=== PATIENT | female | born 1930 | race Two or more races ===

== ENCOUNTER → 2018-06-30 | Outpatient (CLI) | payer MEDICARE ==
--- NOTE | 2018-07-02 12:26 | MM ---
Reason for exam: clinical finding. Last mammogram was performed 3 years and 7 months ago. History: Patient is postmenopausal. Family history of breast cancer in paternal aunt. Indicated problem(s): bloody discharge in the right breast. Physical Findings: Nurse did not find any significant physical abnormalities on exam. MG 3D Diag Mammo W/Cad ALEXSANDRA Bilateral CC and MLO view(s) were taken. Prior study comparison: November 23, 2014, mammogram, performed at [facility]. July 14, 2013, mammogram, performed at [facility]. There are scattered fibroglandular densities. There is an oval, circumscribed, low density central outer right beast mass 7-8cm from nipple. These results were verbally communicated with the patient and result sheet given to the patient on 07/02/18. ASSESSMENT: Incomplete: need additional imaging evaluation, BI-RAD 0 RECOMMENDATION: Ultrasound of the right breast. (in regards to right bloody nipple discharge and possible central outer right breast cyst)
== END | disposition home or self-care (01) ==
LOC: RADMAMWWP 10:11
PROVIDERS: ATTEND Family Medicine
DX: N64.52 Nipple discharge (principal)
CPT/HCPCS: 77066; G0279; 77062

== ENCOUNTER → 2018-07-06 | Outpatient (CLI) | payer MEDICARE ==
--- NOTE | 2018-07-06 14:13 | USB ---
Reason for exam: additional evaluation requested from abnormal screening. History: Patient is postmenopausal. Family history of breast cancer in paternal aunt. US Breast Workup RT Right complete breast ultrasound includes all four quadrants, the retroareolar region and axilla. Finding demonstrates a 3 x 3 x 3mm lesion too small to characterize at 12 o'clock, a 6 x 3 x 6mm oval, irregular lesion too small to characterize at 7 o'clock with vascular surrounding and a 4 x 3 x 3mm round, hypoechoic lesion too small to characterize at 10 o'clock. These results were verbally communicated with the patient and result sheet given to the patient on 07/06/18. ASSESSMENT: Birads 0, incomplete study. RECOMMENDATION: Surgical consultation of the right breast. (consider ductogram do to spontaneous bloody discharge unilaterally) Called Dr. Celestin with mammographic findings and has scheduled an appointment for the patient for 07/07/18 at 10:[address] De La Rosa. PRELIMINARY REPORT CALLED AND FAXED TO DR. DE LA ROSA ON 07/06/18. [facility]
== END ==
LOC: RADUSWWP 12:44
PROVIDERS: ATTEND Family Medicine
DX: R92.8 Other abnormal and inconclusive findings on diagnostic imaging of breast (principal)

== ENCOUNTER → 2018-07-14 | Day surgery (SDC) | payer MEDICARE ==
[2018-07-14 12:19] VITALS: RESP 16; BMI 30.2
[2018-07-14 14:18] VITALS: BP 128/75; PULSE 65; TEMP 97.9
--- NOTE | 2018-07-14 15:34 | USB ---
EXAMINATION TYPE: US biopsy breast add'l VAD RT, US biopsy breast VAD RT, MG diagnostic mammo RT wo CAD DATE OF EXAM: 07/14/2018 CLINICAL HISTORY: R92.8 abn mammo. TECHNIQUE: Two site ultrasound guided core biopsy of right breast. COMPARISON: 07/06/2018 FINDINGS: The procedure of ultrasound guided core biopsy was explained to the patient. Benefits, alternatives, and risks were discussed. An informed consent was then obtained. Preprocedural timeout was performed. Site A: The patient was placed in supine positioning for imaging and for the procedure. The overlying skin was prepped and draped in usual sterile fashion. 9 cc of lidocaine buffered with bicarbonate was used as anesthetic into the skin and subcutaneous tissue up to the 3 mm mass at the 12:00 position in zone A within the right breast. Under ultrasound guidance, a 12-gauge vacuum assisted biopsy gun device was used to obtain 5 core samples. Following this, a ribbon-shaped biopsy marker was left in lesion. Site B: The patient was placed in supine positioning for imaging and for the procedure. The overlying skin was prepped and draped in usual sterile fashion. 10 cc of lidocaine buffered with bicarbonate was used as anesthetic into the skin and subcutaneous tissue up to the 6 mm nearly anechoic mass at the 7:00 position within the right breast. Under ultrasound guidance, a 12-gauge vacuum assisted biopsy gun device was used to obtain a single core sample. As suspected the mass dispersed after initial biopsy compatible with a cyst. Following this, a wing shaped biopsy marker was left at the site of biopsy. The patient tolerated the procedure well without any immediate complication. The patient was kept in the radiology department for short stay after the procedure and then discharged home in stable condition. Postprocedure mammogram demonstrates appropriate placement of the biopsy markers. IMPRESSION: Successful, uncomplicated two site ultrasound guided core biopsy of the right breast, full pathology results to follow. Pathology Results: Malignant A. RIGHT BREAST AT TWELVE O'CLOCK, NEEDLE CORE BIOPSIES: Usual type ductal hyperplasia, duct cystic changes and apocrine metaplasia. B. RIGHT BREAST AT SEVEN O'CLOCK POSITION, NEEDLE CORE BIOPIES: Unremarkable lobulated adipose tissue admixed with benign breast parenchyma with some fibrocystic changes. Recommendation Surgical consult of the right breast. (bloody discharge needs surgical attention) MELO
== END | disposition home or self-care (01) ==
LOC: RADUSWWP 11:56
PROVIDERS: ATTEND Student in an Organized Health Care Education/Training Program
DX: R92.8 Other abnormal and inconclusive findings on diagnostic imaging of breast (principal); N60.81 Other benign mammary dysplasias of right breast
CPT/HCPCS: 88305; 77065; 19083; 19084; A4648; J2001

== ENCOUNTER → 2019-03-24 | Outpatient (CLI) | payer MEDICARE ==
--- NOTE | 2019-03-24 13:33 | CT ---
EXAMINATION TYPE: CT lumbar spine wo con DATE OF EXAM: 03/24/2019 12:27 PM COMPARISON: None. HISTORY: Low back and Left hip/leg pain for [address] DLP: 779 mGycm Automated exposure control for dose reduction was used. Unenhanced CT of the lumbar spine was performed. Bone and soft tissue window settings are submitted as well as coronal and sagittal reconstructions. There are 5 lumbar-type vertebra. There is spectral convex scoliotic curvature centered at L3 level. There is disc desiccation L4-L5 level with slight grade 1 anterolisthesis L4 on L5. Mild disc space n arrowing at this level is seen. Additional mild disc space narrowing and vacuum disc phenomenon at L5 -S1 level. A large posterior disc herniations are present on sagittal or axial images. Review of axial images shows mild facet degenerative changes L2-L3 level. Axial images at L3-L4 levels show mild to moderate facet degenerative changes bilaterally with mild b road disc bulge mildly effacing intrathecal sac. Bilateral neural foramina are patent. Axial images at L4-L5 level show spondylolisthesis with moderate to advanced facet degenerative carrasco es bilaterally with some effacement of the left posterior lateral thecal sac. Broad-based posterior d isc protrusion effacing the anterior thecal sac. There is dolt-qu-avyswlhd left greater than right bi lateral inferior neural foraminal narrowing. Axial images at the L5-S1 level show moderate facet degenerative changes bilaterally. Spinal canal is preserved. There is mild bilateral anterior inferior neural foraminal narrowing. Heterogeneous anteverted uterus with peripheral calcifications is partially imaged. There are diverti cula throughout the sigmoid colon partially imaged. Visualized liver is diffusely low dense consisten t with fatty infiltration. 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 IMPRESSION: Multilevel degenerative changes as detailed above most prominent L4-L5 level.
== END | disposition home or self-care (01) ==
LOC: RADCTMAIN 12:10
PROVIDERS: ATTEND Physical Medicine & Rehabilitation
DX: M47.26 Other spondylosis with radiculopathy, lumbar region (principal)
CPT/HCPCS: 72131

== ENCOUNTER 2019-08-02 18:46 | Emergency (ER) | payer MEDICARE ==
[2019-08-02] MEDS ORDERED: ONDANSETRON 4 MG/2 ML VIAL IVP STA (20:42)
[2019-08-02] MEDS ORDERED: SODIUM CHLORIDE 0.9% 1,000 ML IV STA (20:42)
[2019-08-02 21:45] VITALS: RESP 16
[2019-08-02 21:56] LABS: Basophils % (A) 0 %; Eosinophils # (A) 0.1 k/uL (0-0.7); Eosinophils % (A) 1 %; HGB 15.1 gm/dL (11.4-16.0); Lymphocytes # (A) 1.1 k/uL (1.0-4.8); Lymphocytes % (A) 7 %; MCH 32.3 pg (25.0-35.0); MCHC 34.4 g/dL (31.0-37.0); Mean Platelet Volume 8.9; Monocytes # (A) 0.6 k/uL (0-1.0); Monocytes % (A) 4 %; Neutrophils # (A) 13.6 k/uL (1.3-7.7); Neutrophils % (A) 88 %; Platelet Count 221 k/uL (150-450); RBC 4.68 m/uL (3.80-5.40); RDW 12.4 % (11.5-15.5); WBC 15.5 k/uL (3.8-10.6)
[2019-08-02 22:04] LABS: Potassium 5.1 mmol/L (3.5-5.1)
[2019-08-02 22:05] LABS: Albumin 4.5 g/dL (3.5-5.0); Calcium 10.2 mg/dL (8.4-10.2); Total Bilirubin 1.1 mg/dL (0.2-1.3); Total Protein 7.4 g/dL (6.3-8.2)
[2019-08-02 22:17] LABS: Appearance,Urine Clear (Clear); Bacteria,Urine Rare /hpf; Bilirubin,Urine Negative (Negative); Blood,Urine Small (Negative); Color,Urine Yellow; Glucose,Urine (UA) Negative (Negative); Hyaline Casts,Urine 37 /lpf (0-2); Ketones,Urine Negative (Negative); Leukocyte Esterase,Urine Large (Negative); Mucus,Urine Occasional /hpf; Nitrite,Urine Negative (Negative); PH, Urine 5.5 (5.0-8.0); Protein,Urine Trace (Negative); RBC,Urine 9 /hpf (0-5); Specific Gravity,Urine 1.024 (1.001-1.035); Squamous Epithelial Cell,Urine 1 /hpf (0-4); Transitional Epi Cells,Urine <1 /hpf (0-1); Urobilinogen,Urine <2.0 mg/dL (<2.0); WBC,Urine 38 /hpf (0-5)
--- NOTE | 2019-08-02 22:26 | XR ---
EXAMINATION TYPE: XR KUB DATE OF EXAM: 08/02/2019 COMPARISON: NONE HISTORY: Pain TECHNIQUE: 2 views upright FINDINGS: There is no sign of intestinal obstruction or pneumoperitoneum. Fecal pattern is normal. Th ere are no pathologic calcifications over the kidneys. There is no sign of a mass. Lung bases are adebayo ar. IMPRESSION: Nonacute abdomen.
[2019-08-02] MEDS ORDERED: ONDANSETRON 4 MG ODT STARTER PACK 2 TAB BTL PO STA (22:57)
--- NOTE | 2019-08-02 22:57 | ED ---
General Adult HPI - General Chief complaint: Nausea/Vomiting/Diarrhea Stated complaint: vomiting/diarrhea Time Seen by Provider: 08/02/19 20:14 Source: patient Mode of arrival: ambulatory Limitations: no limitations - History of Present Illness Initial comments: 88-year-old female patient presents to the emergency department today for evaluation of vomiting and diarrhea. Patient states symptoms started around 3 PM this afternoon. States that she has had numerous episodes of both vomiting and diarrhea. States that she's been unable to keep down any food or fluids. States she did try sips of Pedialyte which she then vomited up as well. She states that she is having some mild generalized soreness to her abdomen, she believes it is her muscles. She denies fever but states she has been chilled. She denies any back pain. Denies chest pain or shortness of breath. Denies any recent travel or sick contacts. She did just complete a course of azithromycin and prednisone for ear infection. Patient denies any recent rash, shortness breath, chest pain, back pain, numbness, tingling, dizziness, weakness, hematuria, dysuria, urinary urgency, urinary frequency, headache, visual changes, or any other complaints. - Related Data Home Medications Medication Instructions Recorded Confirmed Atenolol 25 mg PO DAILY 07/13/18 07/14/18 Levothyroxine Sodium [Synthroid] 50 mcg PO DAILY 07/13/18 07/14/18 Losartan-Hctz 50-12.5 mg [Hyzaar 1 each PO DAILY 07/13/18 07/14/18 50-12.5] Lovastatin [Mevacor] 40 mg PO HS 07/13/18 07/14/18 Multivit-Min/Iron/Folic/Lutein 1 each PO DAILY 07/13/18 07/14/18 [Centrum Silver Women Tablet] Previous Rx's Medication Instructions Recorded Nitrofurantoin Monohyd/M-Cryst 100 mg PO Q12HR #14 cap 08/02/19 [Macrobid] Allergies Allergy/AdvReac Type Severity Reaction Status Date / Time No Known Allergies Allergy Verified 08/02/19 19:12 Review of Systems ROS Statement: Those systems with pertinent positive or pertinent negative responses have been documented in the HPI. ROS Other: All systems not noted in ROS Statement are negative. Past Medical History Past Medical History: Hyperlipidemia, Hypertension, Thyroid Disorder History of Any Multi-Drug Resistant Organisms: None Reported Past Surgical History: Orthopedic Surgery Additional Past Surgical History / Comment(s): R heel surgery november 2017 Past Anesthesia/Blood Transfusion Reactions: No Reported Reaction Past Psychological History: No Psychological Hx Reported Smoking Status: Never smoker Past Alcohol Use History: Rare Past Drug Use History: None Reported General Exam Limitations: no limitations General appearance: alert, in no apparent distress, other (This is a well- developed, well-nourished elderly female patient in no acute distress. Vital signs upon presentation are temperature 97.6F, pulse 66, respirations 18, blood pressure 118/78, pulse ox 98% on room air.) Eye exam: Present: normal appearance, PERRL, EOMI. Absent: scleral icterus, conjunctival injection, periorbital swelling ENT exam: Present: normal exam, normal oropharynx, mucous membranes moist Respiratory exam: Present: normal lung sounds bilaterally. Absent: respiratory distress, wheezes, rales, rhonchi, stridor Cardiovascular Exam: Present: regular rate, normal rhythm, normal heart sounds. Absent: systolic murmur, diastolic murmur, rubs, gallop, clicks GI/Abdominal exam: Present: soft, normal bowel sounds. Absent: distended, tenderness, guarding, rebound, rigid Neurological exam: Present: alert, oriented X3, CN II-XII intact Psychiatric exam: Present: normal affect, normal mood Skin exam: Present: warm, dry, intact, normal color. Absent: rash Course Vital Signs 08/02/19 08/02/19 08/02/19 19:10 21:43 23:35 Temperature 97.6 F 97.8 F Pulse Rate 66 72 Respiratory 18 16 16 Rate Blood Pressure 118/78 122/62 O2 Sat by Pulse 98 98 Oximetry Medical Decision Making - Medical Decision Making 88-year-old female patient presents to the emergency department today for evaluation of vomiting diarrhea. Physical examination reveals a soft nontender abdomen. Vital signs are within normal ranges. KUB x-ray was obtained and showed no acute abnormalities. No evidence for obstruction. Labs reviewed and did reveal elevated white blood cell count of 14.5, most likely reactive from vomiting and a recent course of steroids. Urinalysis did show evidence for urinary tract infection. She is given an IV dose of Rocephin. She was also given a liter of normal saline. There is elevation in her BUN and creatinine, according to patient this may be chronic for her. We did offer admission however patient would like to try outpatient treatment. She is able to follow- up with her primary care physician for recheck tomorrow. She is instructed to have a repeat BUN and creatinine drawn by her physician in 3 days. Return parameters were discussed in detail. She verbalizes understanding and agrees with this plan. - Lab Data Result diagrams: 08/02/19 21:40 08/02/19 21:40 Lab Results 08/02/19 08/02/19 08/02/19 Range/Units 21:40 21:40 21:40 WBC 15.5 H (3.8-10.6) k/uL RBC 4.68 (3.80-5.40) m/uL Hgb 15.1 (11.4-16.0) gm/dL Hct 44.0 (34.0-46.0) % MCV 94.0 (80.0-100.0) fL MCH 32.3 (25.0-35.0) pg MCHC 34.4 (31.0-37.0) g/dL RDW 12.4 (11.5-15.5) % Plt Count 221 (150-450) k/uL Neutrophils % 88 % Lymphocytes % 7 % Monocytes % 4 % Eosinophils % 1 % Basophils % 0 % Neutrophils # 13.6 H (1.3-7.7) k/uL Lymphocytes # 1.1 (1.0-4.8) k/uL Monocytes # 0.6 (0-1.0) k/uL Eosinophils # 0.1 (0-0.7) k/uL Basophils # 0.0 (0-0.2) k/uL Sodium 138 (137-145) mmol/L Potassium 5.1 (3.5-5.1) mmol/L Chloride 105 (98-107) mmol/L Carbon Dioxide 21 L (22-30) mmol/L Anion Gap 12 mmol/L BUN 46 H (7-17) mg/dL Creatinine 1.32 H (0.52-1.04) mg/dL Est GFR (CKD-EPI)AfAm 41 (>60 ml/min/1.73 sqM) Est GFR (CKD-EPI)NonAf 36 (>60 ml/min/1.73 sqM) Glucose 136 H (74-99) mg/dL Calcium 10.2 (8.4-10.2) mg/dL Total Bilirubin 1.1 (0.2-1.3) mg/dL AST 36 (14-36) U/L ALT 33 (4-34) U/L Alkaline Phosphatase 56 (38-126) U/L Total Protein 7.4 (6.3-8.2) g/dL Albumin 4.5 (3.5-5.0) g/dL Lipase 234 (23-300) U/L Urine Color Yellow Urine Appearance Clear (Clear) Urine pH 5.5 (5.0-8.0) Ur Specific [place] 1.024 (1.001-1.035) Urine Protein Trace H (Negative) Urine Glucose (UA) Negative (Negative) Urine Ketones Negative (Negative) Urine Blood Small H (Negative) Urine Nitrite Negative (Negative) Urine Bilirubin Negative (Negative) Urine Urobilinogen <2.0 (<2.0) mg/dL Ur Leukocyte Esterase Large H (Negative) Urine RBC 9 H (0-5) /hpf Urine WBC 38 H (0-5) /hpf Urine WBC Clumps Occasional H (None) /hpf Ur Squamous Epith Cells 1 (0-4) /hpf Ur Transition Epith Cell <1 (0-1) /hpf Urine Bacteria Rare H (None) /hpf Hyaline Casts 37 H (0-2) /lpf Urine Mucus Occasional H (None) /hpf - Radiology Data Radiology results: report reviewed, image reviewed KUB x-ray was obtained. Report was reviewed in its entirety. Impression by Dr. Jimenez shows nonacute abdomen. Disposition Clinical Impression: Urinary tract infection, Vomiting and diarrhea Disposition: HOME SELF-CARE Condition: Good Instructions (If sedation given, give patient instructions): Urinary Tract Infection in Women (ED), Acute Nausea and Vomiting (ED), Acute Diarrhea (ED) Additional Instructions: Increase fluids. Complete antibiotic prescription and full. Follow-up with her primary care physician for recheck in 1-2 days. Discuss decreased renal function and have BUN and creatinine tests performed again in 2-3 days. Return to the emergency department if he develops vomiting or fevers. Return for any other new, worsening, or concerning symptoms. Prescriptions: Nitrofurantoin Monohyd/M-Cryst [Macrobid] 100 mg PO Q12HR #14 cap Is patient prescribed a controlled substance at d/c from ED?: No Referrals: Ronen Celestin MD [Primary Care Provider] - 1-2 days Time of Disposition: 22:57
[2019-08-02 23:36] VITALS: BP 122/62; PULSE 72; TEMP 97.8
== END 2019-08-02 23:30 | disposition home or self-care (01) ==
LOC: EC 18:46
DX: N39.0 Urinary tract infection, site not specified (principal); R11.10 Vomiting, unspecified; R19.7 Diarrhea, unspecified; R79.89 Other specified abnormal findings of blood chemistry; E78.5 Hyperlipidemia, unspecified; I10 Essential (primary) hypertension; E07.9 Disorder of thyroid, unspecified; Z79.890 Hormone replacement therapy; Z79.899 Other long term (current) drug therapy; Z86.19 Personal history of other infectious and parasitic diseases
CPT/HCPCS: 36415; 80053; 83690; 85025; 81001; 87086; 74018; 99284; 96365; 96375; 96361; J2405; J0696; S0119

== ENCOUNTER 2019-08-05 05:38 | Inpatient (IN) | payer MEDICARE ==
[2019-08-05] MEDS ORDERED: ONDANSETRON 4 MG/2 ML VIAL IVP STA (05:52)
[2019-08-05] MEDS ORDERED: SODIUM CHLORIDE 0.9% 1,000 ML IV STA (05:52)
[2019-08-05 06:26] LABS: Basophils # (A) 0.2 k/uL (0-0.2); Basophils % (A) 2 %; Eosinophils # (A) 0.1 k/uL (0-0.7); Eosinophils % (A) 1 %; HCT 44.7 % (34.0-46.0); HGB 14.7 gm/dL (11.4-16.0); Lymphocytes # (A) 2.3 k/uL (1.0-4.8); Lymphocytes % (A) 27 %; MCHC 32.8 g/dL (31.0-37.0); MCV 94.4 fL (80.0-100.0); Mean Platelet Volume 8.9; Monocytes # (A) 0.7 k/uL (0-1.0); Monocytes % (A) 8 %; Neutrophils # (A) 5.2 k/uL (1.3-7.7); Neutrophils % (A) 60 %; Platelet Count 186 k/uL (150-450); RBC 4.74 m/uL (3.80-5.40); RDW 12.4 % (11.5-15.5); WBC 8.5 k/uL (3.8-10.6)
[2019-08-05 06:37] LABS: Albumin 4.2 g/dL (3.5-5.0); Calcium 9.4 mg/dL (8.4-10.2); Total Bilirubin 1.3 mg/dL (0.2-1.3); Total Protein 7.2 g/dL (6.3-8.2)
[2019-08-05 06:41] LABS: Potassium 4.6 mmol/L (3.5-5.1)
--- NOTE | 2019-08-05 06:57 | ED ---
Nausea/Vomiting/Diarrhea HPI - General Chief complaint: Nausea/Vomiting/Diarrhea Stated complaint: Vomiting,Diarrhea Source: patient Mode of arrival: ambulatory Limitations: no limitations - History of Present Illness Initial comments: Emma is a pleasant 88-year-old female who was seen and evaluated in the emergency department 2 days ago which time she was experiencing nausea, vomiting, diarrhea, labs at that time were relatively unremarkable urine was concerning for possible urinary tract infection. Patient felt better after IV fluid resuscitation was discharged home on Macrobid. Since that time patient has continued to have persistent nausea, vomiting, diarrhea. Patient reports that today she is just feeling weak and dehydrated unwell. She states she feels lightheaded and woozy when she tries to get up. Denies any abdominal pain. Denies chest pain palpitations or shortness of breath. - Related Data Home Medications Medication Instructions Recorded Confirmed Atenolol 25 mg PO DAILY 07/13/18 07/14/18 Levothyroxine Sodium [Synthroid] 50 mcg PO DAILY 07/13/18 07/14/18 Losartan-Hctz 50-12.5 mg [Hyzaar 1 each PO DAILY 07/13/18 07/14/18 50-12.5] Lovastatin [Mevacor] 40 mg PO HS 07/13/18 07/14/18 Multivit-Min/Iron/Folic/Lutein 1 each PO DAILY 07/13/18 07/14/18 [Centrum Silver Women Tablet] Previous Rx's Medication Instructions Recorded Nitrofurantoin Monohyd/M-Cryst 100 mg PO Q12HR #14 cap 08/02/19 [Macrobid] Allergies Allergy/AdvReac Type Severity Reaction Status Date / Time No Known Allergies Allergy Verified 08/05/19 05:46 Review of Systems ROS Statement: Those systems with pertinent positive or pertinent negative responses have been documented in the HPI. ROS Other: All systems not noted in ROS Statement are negative. Past Medical History Past Medical History: Hyperlipidemia, Hypertension, Thyroid Disorder History of Any Multi-Drug Resistant Organisms: None Reported Past Surgical History: Orthopedic Surgery Additional Past Surgical History / Comment(s): R heel surgery november 2017 Past Anesthesia/Blood Transfusion Reactions: No Reported Reaction Past Psychological History: No Psychological Hx Reported Smoking Status: Never smoker Past Alcohol Use History: Rare Past Drug Use History: None Reported General Exam - General Exam Comments Initial Comments: Physical Exam GENERAL: Patient is well-developed and well-nourished. Appears uncomfortable HENT: Normocephalic, Atraumatic. EYES: PERRL, EOMI PULMONARY: Unlabored respirations. No audible rales rhonchi or wheezing was noted. CARDIOVASCULAR: There is a regular rate and rhythm without any murmurs gallops or rubs. ABDOMEN: Soft and nontender with normal bowel sounds. SKIN: Skin is clear with no lesions or rashes and otherwise unremarkable. : Deferred NEUROLOGIC: Patient is alert and oriented x3. Moving all extremities spontaneously MUSCULOSKELETAL: Normal extremities with adequate strength and full range of motion. No lower extremity swelling or edema. No calf tenderness. PSYCHIATRIC: Normal psychiatric evaluation. Limitations: no limitations Course Vital Signs 08/05/19 08/05/19 05:44 06:58 Temperature 97.9 F 97.6 F Pulse Rate 70 60 Respiratory 18 18 Rate Blood Pressure 101/68 118/61 O2 Sat by Pulse 97 98 Oximetry Medical Decision Making - Medical Decision Making Patient was seen and evaluated this is a pleasant 88-year-old female who's had 5 days of nausea vomiting and diarrhea. There was concern she had a urinary tract infection however cultures of been negative and her symptoms haven't improved on oral antibiotics. He is mildly dehydrated on exam. She is orthostatic symptomatically. Labs and IV fluids ordered. Labs resulted with worsening kidney function, mildly elevated AST and ALT. The patient's advanced age and persistent symptoms I will plan to admit her Patient care was discussed with Dr. Lott who agrees to place the patient observation for IV fluid resuscitation - Lab Data Result diagrams: 08/05/19 06:08 08/05/19 06:08 Lab Results 08/05/19 08/05/19 Range/Units 06:08 06:08 WBC 8.5 (3.8-10.6) k/uL RBC 4.74 (3.80-5.40) m/uL Hgb 14.7 (11.4-16.0) gm/dL Hct 44.7 (34.0-46.0) % MCV 94.4 (80.0-100.0) fL MCH 31.0 (25.0-35.0) pg MCHC 32.8 (31.0-37.0) g/dL RDW 12.4 (11.5-15.5) % Plt Count 186 (150-450) k/uL Neutrophils % 60 % Lymphocytes % 27 % Monocytes % 8 % Eosinophils % 1 % Basophils % 2 % Neutrophils # 5.2 (1.3-7.7) k/uL Lymphocytes # 2.3 (1.0-4.8) k/uL Monocytes # 0.7 (0-1.0) k/uL Eosinophils # 0.1 (0-0.7) k/uL Basophils # 0.2 (0-0.2) k/uL Sodium 138 (137-145) mmol/L Potassium 4.6 (3.5-5.1) mmol/L Chloride 108 H (98-107) mmol/L Carbon Dioxide 20 L (22-30) mmol/L Anion Gap 10 mmol/L BUN 31 H (7-17) mg/dL Creatinine 1.53 H (0.52-1.04) mg/dL Est GFR (CKD-EPI)AfAm 35 (>60 ml/min/1.73 sqM) Est GFR (CKD-EPI)NonAf 30 (>60 ml/min/1.73 sqM) Glucose 125 H (74-99) mg/dL Calcium 9.4 (8.4-10.2) mg/dL Total Bilirubin 1.3 (0.2-1.3) mg/dL AST 53 H (14-36) U/L ALT 43 H (4-34) U/L Alkaline Phosphatase 42 (38-126) U/L Total Protein 7.2 (6.3-8.2) g/dL Albumin 4.2 (3.5-5.0) g/dL Lipase 179 (23-300) U/L Disposition Clinical Impression: Dehydration, Gastroenteritis, Vomiting and diarrhea Disposition: ADMITTED IP TO THIS [facility] Condition: Stable Referrals: Ronen Celestin MD [Primary Care Provider] - 1-2 days
[2019-08-05] MEDS ORDERED: ONDANSETRON 4 MG/2 ML VIAL IVP PRN (06:59)
[2019-08-05] MEDS ORDERED: NALOXONE 0.4 MG/ML 1 ML VIAL IV PRN (06:59)
[2019-08-05] MEDS: SODIUM CHLORIDE 0.9% 1,000 ML IV SCH ×2 (07:47→19:47)
[2019-08-05] MEDS: PANTOPRAZOLE 40 MG/10 ML VIAL IV SCH (10:25)
[2019-08-05 11:12] LABS: Appearance,Urine Clear (Clear); Bilirubin,Urine Negative (Negative); Blood,Urine Negative (Negative); Color,Urine Yellow; Glucose,Urine (UA) Negative (Negative); Ketones,Urine Negative (Negative); Leukocyte Esterase,Urine Negative (Negative); Nitrite,Urine Negative (Negative); PH, Urine 5.5 (5.0-8.0); Protein,Urine Trace (Negative); Specific Gravity,Urine 1.018 (1.001-1.035); Urobilinogen,Urine <2.0 mg/dL (<2.0)
[2019-08-05] MEDS ORDERED: ATENOLOL 25 MG TAB PO SCH (12:30)
[2019-08-05 13:48] VITALS: BMI 30.2
--- NOTE | 2019-08-05 14:41 | P.HPIM ---
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 with a previous medical history significant for hypertension and hypertensive cardiovascular disease, hyperlipidemia, hypothyroidism, osteoarthritis, patient was seen in the emergency department on 08/02/2019 after she developed to have a sudden onset of acute abdominal pain associated with nausea vomiting and diarrhea could not keep anything down that was on 3:00 in the afternoon at that time she was seen and evaluated at that time she was given IV fluid resuscitation and she had a urinalysis that showed possible UTI she was given IV fluid as well as oral antibiotic she was sent home to follow-up with her primary care physician as outpatient, patient felt a bit better after a day or so however she is continued to have significant nausea and vomiting and diarrhea as well as her diarrhea was watery diarrhea yellowish in color and the vomitus with mucousy she could not keep anything down she ended up coming back to the ER today and she was orthostatic hypotensive episodes, she was given a bolus of fluid and she was started on IV fluid resuscitation and she was admitted to the hospital for orthostatic hypotension and acute kidney injury, patient will be followed for the next 24 hours possibly 48 hours. Review of Systems Constitutional: Reports weakness, Denies anorexia, Denies malaise Eyes: denies blurred vision, denies bulging eye, denies decreased vision Ears: deny: decreased hearing Ears, nose, mouth and throat: Denies dysphagia, Denies neck lump, Denies sore throat Cardiovascular: Denies chest pain, Denies decreased exercise tolerance, Denies dyspnea on exertion, Denies lightheadedness, Denies rapid heart beat, Denies shortness of breath, Denies syncope Respiratory: Reports snoring, Denies congestion, Denies cough with sputum, Denies home oxygen, Denies sleep apnea, Denies wheezing Gastrointestinal: Reports abdominal pain, Reports bloating, Reports change in bowel habits, Reports diarrhea, Reports heartburn, Reports indigestion, Reports loss of appetite, Reports nausea, Reports vomiting, Denies hematemesis, Denies hematochezia, Denies melena Genitourinary: Denies dysuria, Denies hematuria Menstruation: Reports postmenopausal Musculoskeletal: Denies myalgias Musculoskeletal: absent: ankle pain, ankle stiffness, ankle swelling, elbow pain, elbow stiffness, elbow swelling, foot pain, foot stiffness, foot swelling, hand pain, hand stiffness, hand swelling, hip pain, hip stiffness, hip swelling, knee pain, knee stiffness, knee swelling, shoulder pain, shoulder stiffness, shoulder swelling, wrist pain, wrist stiffness, wrist swelling Integumentary: Denies pruritus, Denies rash Neurological: Reports vertigo Psychiatric: Denies anxiety, Denies depression Endocrine: Denies fatigue, Denies weight change Past Medical History Past Medical History: Chest Pain / Angina, GERD/Reflux, Hyperlipidemia, Hypertension, Renal Disease, Thyroid Disorder Additional Past Medical History / Comment(s): Recent L ear infection tx with zpak/steroids, CKD stage III, UTIs, hypothyroid, vertigo, bronchitis, 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 Past Anesthesia/Blood Transfusion Reactions: No Reported Reaction Smoking Status: Former smoker - Past Family History Father Family Medical History: Cancer (Father from leukemia at age of 66) Additional Family Medical History / Comment(s): Father had leukemia Mother Family Medical History: CVA/TIA Additional Family Medical History / Comment(s): Mother from a cerebral hemorrhage at the age of 77yrs. Sister(s) Family Medical History: No Reported History (Patient has one sister no major medical problems.) Daughter(s) Family Medical History: No Reported History (Patient has 4 daughters no major medical problems.) Son(s) Family Medical History: No Reported History (Patient has 3 sons no major medical problems.) Medications and Allergies Home Medications Medication Instructions Recorded Confirmed Type Atenolol 25 mg PO DAILY 07/13/18 08/05/19 History Levothyroxine Sodium [Synthroid] 50 mcg PO DAILY 07/13/18 08/05/19 History Losartan-Hctz 50-12.5 mg [Hyzaar 1 tab PO DAILY 07/13/18 08/05/19 History 50-12.5] Lovastatin [Mevacor] 40 mg PO HS 07/13/18 08/05/19 History Nitrofurantoin Monohyd/M-Cryst 100 mg PO Q12HR #14 cap 08/02/19 08/05/19 Rx [Macrobid] Melatonin 10 mg PO HS 08/05/19 08/05/19 History Allergies Allergy/AdvReac Type Severity Reaction Status Date / Time No Known Allergies Allergy Verified 08/05/19 07:46 Physical Exam Vitals: Vital Signs Temp Pulse Pulse Resp BP BP Pulse Ox 08/05/19 11:09 97.7 F 62 16 120/58 100 08/05/19 08:21 98.2 F 61 18 133/62 100 08/05/19 07:40 97.7 F 60 18 119/65 99 08/05/19 06:58 97.6 F 60 18 118/61 98 08/05/19 05:44 97.9 F 70 18 101/68 97 Intake and Output 08/04/19 08/05/19 08/05/19 22:59 06:59 14:59 Other: Weight 74.843 kg 74.843 kg HEENT: Head is atraumatic, normocephalic, pupils were equal round reactive to light and accommodations, extraocular muscle movement were intact, mucous membranes of the mother somewhat dry. Neck: Supple, no JVP, no carotid bruit. Chest: Clear to auscultation bilaterally, there is no crackles no wheezes no chest wall tenderness no intercostal retractions. Heart: First heart sound is depressed, second sounds normal, there is systolic ejection murmur 2/6 sternal border. Abdomen: Soft, minimal tenderness to the epigastric area and no rebound or guarding positive bowel sounds, slightly distended. Extremities: There is no edema, no calf tenderness, dorsalis pedis +2 bilaterally. Neurologic examination: Patient is awake alert and oriented 3, cranial nerves II-12 appear grossly intact, muscle power 5 out of 5 in upper and lower extremities bilaterally, deep tendon reflexes were normal Babinski's were flexor bilaterally. Results CBC & Chem 7: 08/05/19 06:08 08/05/19 06:08 Labs: Abnormal Lab Results - Last 24 Hours (Table) 08/05/19 08/05/19 Range/Units 06:08 10:56 Chloride 108 H (98-107) mmol/L Carbon Dioxide 20 L (22-30) mmol/L BUN 31 H (7-17) mg/dL Creatinine 1.53 H (0.52-1.04) mg/dL Glucose 125 H (74-99) mg/dL AST 53 H (14-36) U/L ALT 43 H (4-34) U/L Urine Protein Trace H (Negative) Thrombosis Risk Factor Assmnt - DVT/VTE Prophylaxis DVT/VTE Prophylaxis: Pharmacologic Prophylaxis ordered, Mechanical Prophylaxis ordered - Choose All That Apply Any of the Below Risk Factors Present?: Yes Each Factor Represents 1 point: Obesity (BMI >25) Other Risk Factors: Yes Each Risk Factor Represents 3 Points: Age 75 years or older Other congenital or acquired thrombophilia - If yes, enter type in comment: No Thrombosis Risk Factor Assessment Total Risk Factor Score: 4 Thrombosis Risk Factor Assessment Level: Moderate Risk Assessment and Plan Assessment: Assessment and plan: 1. Acute gastroenteritis with resultant orthostatic hypotension. Continue IV fluid resuscitation the form of normal saline at 100 mL per hour, hold off losartan hydrochlorothiazide for now, monitor the patient input and output and daily weight monitoring her the patient orthostatics, continue supportive care continue with antiemetics, continue patient on clear liquid diet advance as tolerated, no dairy products except yogurt 2. Orthostatic hypotension due to volume depletion. Continue IV fluid resuscitation monitor the patient orthostatics. 3. Acute kidney injury and top of chronic kidney disease stage III. Continue IV fluid resuscitation, monitor the patient CMP and urine output over the next 24 hours. Old off losartan hydrochlorothiazide. 3. Hypertension and hypertensive cardiovascular disease. Discontinue losartan/hydrochlorothiazide, continue atenolol 25 mg orally once every day. 4. Hypothyroidism. Continue Synthroid 25 g orally once every day. 5. Hyperlipidemia. Continue lovastatin 40 mg orally once every day. 6. DVT prophylaxis. Continue patient on heparin 5000 units subcutaneously every 12 hours. 7. GI prophylaxis. Continue Protonix 40 mg orally once every day. 8. Admit to inpatient. Estimated length of stay 2 midnights. 9. Patient is full code.
[2019-08-05] MEDS: HEPARIN SODIUM,PORCINE 5,000 UNIT/ML 1 ML VIAL SQ SCH ×2 (17:47→23:48)
[2019-08-05] MEDS: MELATONIN 5 MG TABLET PO SCH (21:14)
[2019-08-06] MEDS: LEVOTHYROXINE 50 MCG TAB PO SCH (05:54)
[2019-08-06] MEDS: PANTOPRAZOLE 40 MG/10 ML VIAL IV SCH (07:52)
[2019-08-06] MEDS: HEPARIN SODIUM,PORCINE 5,000 UNIT/ML 1 ML VIAL SQ SCH ×3 (07:53→23:35)
[2019-08-06] MEDS: SODIUM CHLORIDE 0.9% 1,000 ML IV SCH ×2 (09:17→21:01)
[2019-08-06 09:45] LABS: Albumin 2.9 g/dL (3.5-5.0); Calcium 8.4 mg/dL (8.4-10.2); Magnesium 1.7 mg/dL (1.6-2.3); Potassium 3.8 mmol/L (3.5-5.1); Total Protein 5.6 g/dL (6.3-8.2)
[2019-08-06 10:30] LABS: HCT 40.4 % (34.0-46.0); HGB 13.5 gm/dL (11.4-16.0); MCH 31.6 pg (25.0-35.0); MCHC 33.5 g/dL (31.0-37.0); MCV 94.3 fL (80.0-100.0); Mean Platelet Volume 12.7; RBC 4.29 m/uL (3.80-5.40); RDW 12.4 % (11.5-15.5); WBC 6.1 k/uL (3.8-10.6)
[2019-08-06 12:19] LABS: Band Neutrophils % 2 %; Eosinophils # (M) 0.06 k/uL (0-0.7); Lymphocytes # (M) 2.44 k/uL (1.0-4.8); Monocytes # (M) 0.24 k/uL (0-1.0); Neutrophils % (M) 53 %; Nucleated Red Blood Cells 0 /100 WBC (0-0); Total Cells Counted 100
[2019-08-06 12:20] LABS: Platelet Count 95 k/uL (150-450)
--- NOTE | 2019-08-06 12:45 | P.PN ---
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 with a previous medical history significant for hypertension and hypertensive cardiovascular disease, hyperlipidemia, hypothyroidism, osteoarthritis, patient was seen in the emergency department on 08/02/2019 after she developed to have a sudden onset of acute abdominal pain associated with nausea vomiting and diarrhea could not keep anything down that was on 3:00 in the afternoon at that time she was seen and evaluated at that time she was given IV fluid resuscitation and she had a urinalysis that showed possible UTI she was given IV fluid as well as oral antibiotic she was sent home to follow-up with her primary care physician as outpatient, patient felt a bit better after a day or so however she is continued to have significant nausea and vomiting and diarrhea as well as her diarrhea was watery diarrhea yellowish in color and the vomitus with mucousy she could not keep anything down she ended up coming back to the ER today and she was orthostatic hypotensive episodes, she was given a bolus of fluid and she was started on IV fluid resuscitation and she was admitted to the hospital for orthostatic hypotension and acute kidney injury, patient will be followed for the next 24 hours possibly 48 hours. 08/06: Patient continues to have diarrhea, however no more vomiting or nausea at this time. Patient is tolerating clear liquid diet. Patient is requesting to go home today. Patient states that she is feeling much better compared to yesterday. Patient has been receiving oral anabiotic at home prior to this episode of nausea vomiting and diarrhea. She continues to be afebrile, vital signs are stable. WBC 6.1, hemoglobin 13.5, potassium 3.8, BUN 16, creatinine 1.07. Review of Systems Constitutional: Reports weakness, Denies anorexia, Denies malaise Eyes: denies blurred vision, denies bulging eye, denies decreased vision Ears: deny: decreased hearing Ears, nose, mouth and throat: Denies dysphagia, Denies neck lump, Denies sore throat Cardiovascular: Denies chest pain, Denies decreased exercise tolerance, Denies dyspnea on exertion, Denies lightheadedness, Denies rapid heart beat, Denies shortness of breath, Denies syncope Respiratory: Reports snoring, Denies congestion, Denies cough with sputum, Denies home oxygen, Denies sleep apnea, Denies wheezing Gastrointestinal: Reports abdominal pain, Reports bloating, Reports change in bowel habits, Reports diarrhea, Reports heartburn, Reports indigestion, Reports loss of appetite, Reports nausea, Reports vomiting, Denies hematemesis, Denies hematochezia, Denies melena Genitourinary: Denies dysuria, Denies hematuria Menstruation: Reports postmenopausal Musculoskeletal: Denies myalgias Musculoskeletal: absent: ankle pain, ankle stiffness, ankle swelling, elbow pain, elbow stiffness, elbow swelling, foot pain, foot stiffness, foot swelling, hand pain, hand stiffness, hand swelling, hip pain, hip stiffness, hip swelling, knee pain, knee stiffness, knee swelling, shoulder pain, shoulder stiffness, shoulder swelling, wrist pain, wrist stiffness, wrist swelling Integumentary: Denies pruritus, Denies rash Neurological: Reports vertigo Psychiatric: Denies anxiety, Denies depression Endocrine: Denies fatigue, Denies weight change Objective - Vital Signs Vital signs: Vital Signs Temp 97.6 F 08/06/19 11:27 Pulse 64 08/06/19 11:27 Resp 16 08/06/19 11:27 BP 123/62 08/06/19 11:27 Pulse Ox 99 08/06/19 11:27 Intake & Output 08/05/19 08/06/19 08/06/19 18:59 06:59 18:59 Intake Total 600 1400 2080 Balance 600 1400 2080 Weight 74.843 kg Intake: Intake, IV Titration 600 800 900 Amount Sodium Chloride 0.9% 1, 600 800 900 000 ml @ 75 mls/hr IV . [id number] [facility] Rx#:[id number] Oral 600 1180 Other: Voiding Method Toilet Toilet # Voids 1 5 3 # Bowel Movements 1 1 - Exam General Appearance: Alert, cooperative, no distress, appears stated age. Neck HEENT: Supple, no lymphadenopathy, no thyroid enlargement, no carotid bruits. Lungs: Clear to auscultation without crackles or wheezes no rhonchi, no deformity. Chest Wall: Chest wall normal expansion with deep inspiration no tenderness and no deformity was found on exam, no costochondral pain or discomfort. Heart: Regular rate and rhythm, S1, S2 normal, systolic ejection murmur 2/6 sternal border, rub or gallop. Back: Symmetric, no curvature, ROM normal, no CVA tenderness. Abdomen: Soft, tenderness to epigastric area, slightly distended, no rebound or rigidity, no hepatosplenomegaly. Extremities: Extremities normal, atraumatic, no cyanosis or edema. No calf tenderness Pulses: 2+ and symmetric. Skin: Skin color, texture, tugor normal, no rashes or lesions. Neurologic: Alert oriented x3 cranial nerves II through XII intact, no motor deficit, no abnormal balance or gait - Labs CBC & Chem 7: 08/06/19 07:01 08/06/19 07:01 Labs: Abnormal Lab Results - Last 24 Hours (Table) 08/06/19 08/06/19 Range/Units 07: 07:01 Plt Count 95 L (150-450) k/uL Chloride 115 H (98-107) mmol/L Carbon Dioxide 19 L (22-30) mmol/L Creatinine 1.07 H (0.52-1.04) mg/dL Alkaline Phosphatase 32 L (38-126) U/L Total Protein 5.6 L (6.3-8.2) g/dL Albumin 2.9 L (3.5-5.0) g/dL Assessment and Plan Plan: 1. Acute gastroenteritis with resultant orthostatic hypotension. Continue IV fluid resuscitation the form of normal saline at 100 mL per hour, hepatitis davey el ordered, hold off losartan hydrochlorothiazide for now, monitor the patient input and output and daily weight monitoring her the patient orthostatics, continue supportive care continue with antiemetics, continue patient on clear liquid diet advance as tolerated, no dairy products except yogurt. Increase diet to full liquid for lunch and regular diet this afternoon. If patient is able to tolerate diet may consider discharge tomorrow. 2. Orthostatic hypotension due to volume depletion. Continue IV fluid resuscitation monitor the patient orthostatics. 3. Acute kidney injury and top of chronic kidney disease stage III. Continue IV fluid resuscitation, monitor the patient CMP and urine output. Discontinue losartan hydrochlorothiazide. 3. Hypertension and hypertensive cardiovascular disease. Discontinue losartan/hydrochlorothiazide, continue atenolol 25 mg orally once every day. 4. Hypothyroidism. Continue Synthroid 25 g orally once every day. 5. Hyperlipidemia. Continue lovastatin 40 mg orally once every day. 6. Diarrhea. Stool cultures obtained 7. DVT prophylaxis. Continue patient on heparin 5000 units subcutaneously every 12 hours. 8. GI prophylaxis. Continue Protonix 40 mg orally once every day. Admit to inpatient. Estimated length of stay 2 midnights. CODE STATUS:Full code. Impression and plan of care have been directed as dictated by the signing physician. Noris Plaza nurse practitioner acting as scribe for signing physician.
[2019-08-06 18:30] LABS: Hepatitis A Antibody IgM Non-Reactive (Non-Reactive); Hepatitis B Core IgM Non-Reactive (Non-Reactive); Hepatitis B Surface Antigen Non-Reactive (Non-Reactive); Hepatitis C IgG Antibody Non-Reactive (Non-Reactive)
[2019-08-06] MEDS: MELATONIN 5 MG TABLET PO SCH (21:00)
[2019-08-06] MEDS ORDERED: ATENOLOL 25 MG TAB PO SCH (21:00)
[2019-08-07] MEDS: LEVOTHYROXINE 50 MCG TAB PO SCH (05:59)
[2019-08-07 06:18] VITALS: BP 113/98; PULSE 62; RESP 16; TEMP 97
[2019-08-07] MEDS: HEPARIN SODIUM,PORCINE 5,000 UNIT/ML 1 ML VIAL SQ SCH (06:43)
[2019-08-07] MEDS: PANTOPRAZOLE 40 MG/10 ML VIAL IV SCH (06:44)
[2019-08-07 08:03] LABS: Calcium 8.6 mg/dL (8.4-10.2); Potassium 4.2 mmol/L (3.5-5.1)
--- NOTE | 2019-08-07 08:57 | P.PN ---
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 with a previous medical history significant for hypertension and hypertensive cardiovascular disease, hyperlipidemia, hypothyroidism, osteoarthritis, patient was seen in the emergency department on 08/02/2019 after she developed to have a sudden onset of acute abdominal pain associated with nausea vomiting and diarrhea could not keep anything down that was on 3:00 in the afternoon at that time she was seen and evaluated at that time she was given IV fluid resuscitation and she had a urinalysis that showed possible UTI she was given IV fluid as well as oral antibiotic she was sent home to follow-up with her primary care physician as outpatient, patient felt a bit better after a day or so however she is continued to have significant nausea and vomiting and diarrhea as well as her diarrhea was watery diarrhea yellowish in color and the vomitus with mucousy she could not keep anything down she ended up coming back to the ER today and she was orthostatic hypotensive episodes, she was given a bolus of fluid and she was started on IV fluid resuscitation and she was admitted to the hospital for orthostatic hypotension and acute kidney injury, patient will be followed for the next 24 hours possibly 48 hours. 08/06: Patient continues to have diarrhea, however no more vomiting or nausea at this time. Patient is tolerating clear liquid diet. Patient is requesting to go home today. Patient states that she is feeling much better compared to yesterday. Patient has been receiving oral anabiotic at home prior to this episode of nausea vomiting and diarrhea. She continues to be afebrile, vital signs are stable. WBC 6.1, hemoglobin 13.5, potassium 3.8, BUN 16, creatinine 1.07. Review of Systems Constitutional: Reports weakness, Denies anorexia, Denies malaise Eyes: denies blurred vision, denies bulging eye, denies decreased vision Ears: deny: decreased hearing Ears, nose, mouth and throat: Denies dysphagia, Denies neck lump, Denies sore throat Cardiovascular: Denies chest pain, Denies decreased exercise tolerance, Denies dyspnea on exertion, Denies lightheadedness, Denies rapid heart beat, Denies shortness of breath, Denies syncope Respiratory: Reports snoring, Denies congestion, Denies cough with sputum, Denies home oxygen, Denies sleep apnea, Denies wheezing Gastrointestinal: Reports abdominal pain, Reports bloating, Reports change in bowel habits, Reports diarrhea, Reports heartburn, Reports indigestion, Reports loss of appetite, Reports nausea, Reports vomiting, Denies hematemesis, Denies hematochezia, Denies melena Genitourinary: Denies dysuria, Denies hematuria Menstruation: Reports postmenopausal Musculoskeletal: Denies myalgias Musculoskeletal: absent: ankle pain, ankle stiffness, ankle swelling, elbow pain, elbow stiffness, elbow swelling, foot pain, foot stiffness, foot swelling, hand pain, hand stiffness, hand swelling, hip pain, hip stiffness, hip swelling, knee pain, knee stiffness, knee swelling, shoulder pain, shoulder stiffness, shoulder swelling, wrist pain, wrist stiffness, wrist swelling Integumentary: Denies pruritus, Denies rash Neurological: Reports vertigo Psychiatric: Denies anxiety, Denies depression Endocrine: Denies fatigue, Denies weight change Objective - Vital Signs Vital signs: Vital Signs Temp 97.0 F L 08/07/19 05:50 Pulse 62 08/07/19 05:50 Resp 16 08/07/19 05:50 BP 113/98 08/07/19 05:50 Pulse Ox 96 08/07/19 05:50 Intake & Output 08/06/19 08/07/19 08/07/19 18:59 06:59 18:59 Intake Total 2079 1999 Balance 2079 1999 Intake: Intake, IV Titration 900 800 Amount Sodium Chloride 0.9% 1, 900 800 000 ml @ 75 mls/hr IV . [id number] [facility] Rx#:[id number] Oral 1180 1200 Other: Voiding Method Toilet Toilet Toilet # Voids 1 4 1 # Bowel Movements 1 2 2 - Exam General Appearance: Alert, cooperative, no distress, appears stated age. Neck HEENT: Supple, no lymphadenopathy, no thyroid enlargement, no carotid bruits. Lungs: Clear to auscultation without crackles or wheezes no rhonchi, no deformity. Chest Wall: Chest wall normal expansion with deep inspiration no tenderness and no deformity was found on exam, no costochondral pain or discomfort. Heart: Regular rate and rhythm, S1, S2 normal, systolic ejection murmur 2/6 sternal border, rub or gallop. Back: Symmetric, no curvature, ROM normal, no CVA tenderness. Abdomen: Soft, tenderness to epigastric area, slightly distended, no rebound or rigidity, no hepatosplenomegaly. Extremities: Extremities normal, atraumatic, no cyanosis or edema. No calf tenderness Pulses: 2+ and symmetric. Skin: Skin color, texture, tugor normal, no rashes or lesions. Neurologic: Alert oriented x3 cranial nerves II through XII intact, no motor deficit, no abnormal balance or gait - Labs CBC & Chem 7: 08/06/19 07:01 08/07/19 07:10 Labs: Abnormal Lab Results - Last 24 Hours (Table) 08/06/19 08/06/19 08/07/19 Range/Units 07:01 07: 07:10 Plt Count 95 L (150-450) k/uL Chloride 115 H 117 H (98-107) mmol/L Carbon Dioxide 19 L 16 L (22-30) mmol/L Creatinine 1.07 H (0.52-1.04) mg/dL Alkaline Phosphatase 32 L (38-126) U/L Total Protein 5.6 L (6.3-8.2) g/dL Albumin 2.9 L (3.5-5.0) g/dL Assessment and Plan Plan: 1. Acute gastroenteritis with resultant orthostatic hypotension. Continue IV fluid resuscitation the form of normal saline at 100 mL per hour, hepatitis panel ordered, hold off losartan hydrochlorothiazide for now, monitor the patient input and output and daily weight monitoring her the patient orthostatics, continue supportive care continue with antiemetics, continue patient on clear liquid diet advance as tolerated, no dairy products except yogurt. Increase diet to full liquid for lunch and regular diet this afternoon. If patient is able to tolerate diet may consider discharge tomorrow. 2. Orthostatic hypotension due to volume depletion. Continue IV fluid resuscitation monitor the patient orthostatics. 3. Acute kidney injury and top of chronic kidney disease stage III. Continue IV fluid resuscitation, monitor the patient CMP and urine output. Discontinue losartan hydrochlorothiazide. 3. Hypertension and hypertensive cardiovascular disease. Discontinue losartan/hydrochlorothiazide, continue atenolol 25 mg orally once every day. 4. Hypothyroidism. Continue Synthroid 25 g orally once every day. 5. Hyperlipidemia. Continue lovastatin 40 mg orally once every day. 6. Diarrhea. Stool cultures obtained 7. DVT prophylaxis. Continue patient on heparin 5000 units subcutaneously every 12 hours. 8. GI prophylaxis. Continue Protonix 40 mg orally once every day. Admit to inpatient. Estimated length of stay 2 midnights. CODE STATUS:Full code. Impression and plan of care have been directed as dictated by the signing physician. Noris Plaza nurse practitioner acting as scribe for signing physician.
[2019-08-07 09:28] LABS: Basophils # (A) 0.1 k/uL (0-0.2); Basophils % (A) 1 %; Eosinophils # (A) 0.1 k/uL (0-0.7); Eosinophils % (A) 2 %; HCT 41.4 % (34.0-46.0); Lymphocytes # (A) 2.7 k/uL (1.0-4.8); Lymphocytes % (A) 41 %; MCH 31.8 pg (25.0-35.0); MCHC 33.9 g/dL (31.0-37.0); MCV 93.9 fL (80.0-100.0); Monocytes # (A) 0.5 k/uL (0-1.0); Monocytes % (A) 7 %; Neutrophils # (A) 3.2 k/uL (1.3-7.7); Neutrophils % (A) 48 %; Platelet Count 120 k/uL (150-450); RBC 4.41 m/uL (3.80-5.40); RDW 12.5 % (11.5-15.5); WBC 6.7 k/uL (3.8-10.6)
[2019-08-07] MEDS: SODIUM BICARBONATE TAB 650 MG TAB PO SCH ×2 (10:14→13:02)
[2019-08-07] MEDS: SODIUM CHLORIDE 0.9% 1,000 ML IV SCH (11:34)
--- NOTE | 2019-08-07 14:57 | P.DS ---
Providers Date of admission: 08/07/19 08:44 Attending physician: Alfred Lott Primary care physician: Ronen Celestin [facility] Course: This is an 88-year-old female one of Dr. Fawad Hardwick with a previous medical history significant for hypertension and hypertensive cardiovascular disease, hyperlipidemia, hypothyroidism, osteoarthritis, patient was seen in the emergency department on 08/02/2019 after she developed to have a sudden onset of acute abdominal pain associated with nausea vomiting and diarrhea could not keep anything down that was on 3:00 in the afternoon at that time she was seen and evaluated at that time she was given IV fluid resus citation and she had a urinalysis that showed possible UTI she was given IV fluid as well as oral antibiotic she was sent home to follow-up with her primary care physician as outpatient, patient felt a bit better after a day or so however she is continued to have significant nausea and vomiting and diarrhea as well as her diarrhea was watery diarrhea yellowish in color and the vomitus with mucousy she could not keep anything down she ended up coming back to the ER today and she was orthostatic hypotensive episodes, she was given a bolus of fluid and she was started on IV fluid resuscitation and she was admitted to the hospital for orthostatic hypotension and acute kidney injury, patient will be followed for the next 24 hours possibly 48 hours. 08/06: Patient continues to have diarrhea, however no more vomiting or nausea at this time. Patient is tolerating clear liquid diet. Patient is requesting to go home today. Patient states that she is feeling much better compared to yesterday. Patient has been receiving oral anabiotic at home prior to this episode of nausea vomiting and diarrhea. She continues to be afebrile, vital signs are stable. WBC 6.1, hemoglobin 13.5, potassium 3.8, BUN 16, creatinine 1.07. 08/07: Patient had 1 episode of diarrhea throughout the night. She did have breast throats for dinner which was difficult to digest due to nothing by mouth status previously. Patient has been tolerating all of her meals without any difficulties. Patient is requesting to go home today. She states she's feeling much better and can follow-up with her primary care doctor in 1 week. No other antibiotics given completed course while hospitalized. Patient is able to tolerate diet. Discussed with patient the importance of cooking all vegetables. No dairy for 2 weeks. May have a probiotic or activia. Discharge diagnosis 1. Acute gastroenteritis with resultant orthostatic hypotension. 2. Orthostatic hypotension due to volume depletion. 3. Acute kidney injury and top of chronic kidney disease stage III. 3. Hypertension and hypertensive cardiovascular disease. 4. Hypothyroidism. 5. Hyperlipidemia. 6. Diarrhea. Disposition: Home with self-care Impression and plan of care have been directed as dictated by the signing physician. Noris Plaza nurse practitioner acting as scribe for signing physician. Cc Dr. Armaan Owen Patient Condition at Discharge: Stable Plan - Discharge Summary Discharge Rx Participant: No New Discharge Prescriptions: Continue RX: Lovastatin [Mevacor] 40 mg PO HS RX: Levothyroxine Sodium [Synthroid] 50 mcg PO DAILY RX: Atenolol 25 mg PO DAILY RX: Losartan-Hctz 50-12.5 mg [Hyzaar 50-12.5] 1 tab PO DAILY RX: Melatonin 10 mg PO HS Discontinued RX: Nitrofurantoin Monohyd/M-Cryst [Macrobid] 100 mg PO Q12HR #14 cap Discharge Medication List RX: Atenolol 25 mg PO DAILY 07/13/18 [History] RX: Levothyroxine Sodium [Synthroid] 50 mcg PO DAILY 07/13/18 [History] RX: Losartan-Hctz 50-12.5 mg [Hyzaar 50-12.5] 1 tab PO DAILY 07/13/18 [History] RX: Lovastatin [Mevacor] 40 mg PO HS 07/13/18 [History] RX: Melatonin 10 mg PO HS 08/05/19 [History] Follow up Appointment(s)/Referral(s): Ronen Celestin MD [Primary Care Provider] - 1 Week (Patient to call Dr. Celestin's office Thursday morning to schedule follow up appointment. The office is closed at time of discharge. with labs cbc, cmp on office day) Patient Instructions/Handouts: Dehydration (DC), Urinary Tract Infection in Women (DC), Gastroenteritis (DC), Acute Nausea and Vomiting (DC) Activity/Diet/Wound Care/Special Instructions: Diet consist of easy digestable foods No dairy for 2 weeks except activia 1-2 a day or [place] yogurt May use probiotic All vegetables need to be cooked to soft foods Discharge Disposition: HOME SELF-CARE
[2019-08-08] MEDS ORDERED: PANTOPRAZOLE 40 MG TABLET PO SCH (07:30)
== END 2019-08-07 14:55 | disposition home or self-care (01) | DRG 312 ==
LOC: EC 05:38 → 5NMEDONC 07:03 → OBSVTOIN 08-07 08:44
PROVIDERS: ADMIT Internal Medicine; ATTEND Internal Medicine
DX: I95.1 Orthostatic hypotension (principal); N17.9 Acute kidney failure, unspecified; K52.9 Noninfective gastroenteritis and colitis, unspecified; N18.3 Chronic kidney disease, stage 3 (moderate); I13.10 Hypertensive heart and chronic kidney disease without heart failure, with stage 1 through stage 4 chronic kidney disease, or unspecified chronic kidney disease; E03.9 Hypothyroidism, unspecified; E78.5 Hyperlipidemia, unspecified; E86.0 Dehydration; Z79.890 Hormone replacement therapy; Z79.899 Other long term (current) drug therapy; Z80.6 Family history of leukemia; Z87.891 Personal history of nicotine dependence; M54.32 Sciatica, left side; G89.29 Other chronic pain; Z87.440 Personal history of urinary (tract) infections
CPT/HCPCS: 36415; 80048; 80053; 80074; 81003; 83690; 83735; 85025; 87324; 96361; 96374; 99284